=== PATIENT | female | born 1955 | race Two or more races ===

== ENCOUNTER → 2024-11-17 | Outpatient (CLI) | payer OTHER, SELFPAY ==
[2024-11-17 12:48] LABS: Glucose Estimated Average 117 mg/dL (80-131); Hemoglobin A1C 5.7 % Hgb (4.8-6.0)
[2024-11-17 12:57] LABS: Alanine Aminotransferase 31 U/L (10-49); Albumin, Serum 4.4 gm/dL (3.4-4.8); Albumin/Globulin Ratio 1.8 (1.2-2.2); Alkaline Phosphatase 73 U/L (46-116); Anion Gap 8 (7-16); Aspartate Amino Transferase 32 U/L (0-34); BUN/Creatinine Ratio 12 Ratio (12-20); Bilirubin,Total 1.0 mg/dL (0.3-1.2); Blood Urea Nitrogen 13 mg/dL (9-23); Calcium 9.6 mg/dL (8.3-10.6); Calcium (Corrected) 9.6 mg/dL (8.5-10.1); Carbon Dioxide 26.9 mMol/L (20.0-31.0); Cardiac Risk Estimate 4.6 RATIO (3.7-5.6); Chloride 104 mMol/L (98-107); Cholesterol 226 mg/dL (132-200); Creatinine (Component) 1.1 mg/dL (0.6-1.3); Free T4 (Free Thyroxine) 1.27 ng/dL (0.89-1.76); Globulin 2.4 gm/dL (2.3-3.5); Glucose 95 mg/dL (74-106); HDL Cholesterol 49 mg/dL (40-60); LDL Cholesterol,Calculated 138 mg/dL (0-130); Osmolality,Calculated 277 (275-295); Potassium 4.3 mMol/L (3.4-5.1); Sodium 139 mMol/L (136-145); Thyroid Stimulating Hormone 1.19 uIU/mL (0.55-4.78); Total Protein 6.8 gm/dL (5.7-8.2); Triglycerides 197 mg/dL (30-150); eGFR 54 See Note
[2024-11-17 13:02] LABS: Basophils # (Auto) 0.1 Thou/mm3 (0.0-0.2); Basophils % (Auto) 2 % (0-2.5); Eosinophils # (Auto) 0.2 Thou/mm3 (0.0-0.5); Eosinophils % (Auto) 4 % (0-10); Hematocrit 43.2 % (36.0-46.0); Hemoglobin 14.9 g/dL (12.0-16.0); Immature Granulocytes Auto 0.01 Thou/mm3 (0.00-0.00); Lymphocytes # (Auto) 2.3 Thou/mm3 (1.0-4.8); Lymphocytes % (Auto) 40 % (10-50); Mean Corpuscular HGB Conc 34.5 g/dl (31.0-37.0); Mean Corpuscular Hemoglobin 33.9 pg (25.0-35.0); Mean Corpuscular Volume 98 fL (80-100); Monocytes # (Auto) 0.4 Thou/mm3 (0.0-0.8); Monocytes % (Auto) 7 % (0-12); Neutrophils # (Auto) 2.7 Thou/mm3 (1.8-7.7); Neutrophils % (Auto) 47 % (37-80); Nucleated Red Blood Cell # 0.00 Thou/mm3 (0.00-0.00); Nucleated Red Blood Cell % 0 /100 WBC (0); Platelet Count 254 Thou/mm3 (140-440); RDW Standard Deviation 45.8 fL (36.4-46.3); Red Blood Count 4.40 Miln/mm3 (4.00-5.20); White Blood Count 5.8 Thou/mm3 (3.6-11.0)
[2024-11-17 13:11] LABS: Vitamin D 25 Hydroxy Total 30.1 ng/mL (7.3-40.2)
[2024-11-18 08:01] LABS: CA 15-3 10.2 U/mL (<32.4)
[2024-11-18 16:22] LABS: Vitamin B12 749 pg/mL (211-911)
== END | disposition home or self-care (01) ==
LOC: COPL 11:08
PROVIDERS: PCP Internal Medicine; Referring Provider Internal Medicine; Visit Provider Internal Medicine
DX: Z00.00 Encounter for general adult medical examination without abnormal findings (principal); E55.9 Vitamin D deficiency, unspecified
CPT/HCPCS: 36415; 80053; 80061; 82306; 82607; 83036; 84439; 84443; 85025; 86300

== ENCOUNTER → 2024-11-24 | Outpatient (CLI) | payer OTHER, SELFPAY ==
--- NOTE | 2024-11-24 | XR_ITS ---
Examination: Screening digital mammography, unilateral left Computer aided detection 3-D breast Tomosynthesis, unilateral Date and time of exam: November 24, 2024 0920 hours. Compared to mammograms dating to November 11, 2015 Indication: Screening Technique: Nonmagnified MLO, CC views of the left breast to been obtained, reconstructed from 3-D Tomosynthesis images. R2 computer aided detection program utilized for evaluation of suspicious masses and/or abnormal calcifications. 3-D Tomosynthesis images obtained. Findings: Scattered areas of fibroglandular density 7 mm nodule partially indistinct margins upper outer left breast posterior depth IMPRESSION: BI-RADS Category 0: Incomplete: Need additional imaging evaluation Recommend follow-up spot tomographic views of 7 mm nodule upper outer left breast as well as left breast sonography to complete the workup
== END | disposition home or self-care (01) ==
PROVIDERS: PCP Internal Medicine; Referring Provider Internal Medicine; Visit Provider Internal Medicine
DX: Z12.31 Encounter for screening mammogram for malignant neoplasm of breast (principal); N63.21 Unspecified lump in the left breast, upper outer quadrant
CPT/HCPCS: 77063; 77067

== ENCOUNTER → 2024-12-14 | Outpatient (CLI) | payer OTHER, MEDICARE, SELFPAY ==
--- NOTE | 2024-12-14 | XR_ITS ---
Examination: Breast ultrasound, unilateral, left complete Date and time of exam: December 14, 2024 1110 hours INDICATIONS: Personal history right breast cancer with mastectomy and bilateral breast 7 mm nodule indistinct margins upper outer left breast posterior depth reconstruction 1999, family history, sister breast cancer, left mammogram November 24, 2024 Technique: Real-time orosco scale ultrasonographic imaging performed left breast including all 4 quadrants as well as nipple retroareolar and axillary region. Findings: 2:00 nodule, suspicious, taller than wide, indistinct margins, 8 x 11 x 8 mm Benign cysts IMPRESSION: BI-RADS Category 4: Suspicious for malignancy Suspicious mass 2:00 position left breast, biopsy is needed to exclude breast carcinoma, this mass is amenable to ultrasound-guided breast biopsy for diagnosis
--- NOTE | 2024-12-14 | XR_ITS ---
Examination: Diagnostic digital mammography, unilateral, left Computer aided detection 3-D breast Tomosynthesis, unilateral Date and time of exam: December 14, 2024 1123 hours INDICATIONS: Mammogram November 24, 2024 7 mm nodule partially indistinct margins upper outer left breast Technique: Nonmagnified MLO, CC views of the left breast have been obtained, reconstructed from 3-D Tomosynthesis images. R2 computer aided detection program utilized for evaluation of suspicious masses and/or abnormal calcifications. 3-D Tomosynthesis images obtained. Findings: Scattered areas of fibroglandular density. 2:00 nodule is confirmed indistinct margins 11 mm upper outer left breast Impression: BI-RADS Category 4: Suspicious for malignancy Suspicious nodule 2:00 position left breast, also identified on left breast sonography today Biopsy is needed to exclude breast carcinoma, this nodule is amenable to ultrasound-guided breast biopsy for diagnosis
== END | disposition home or self-care (01) ==
PROVIDERS: PCP Internal Medicine; Referring Provider Internal Medicine; Visit Provider Internal Medicine
DX: R92.342 Mammographic extreme density, left breast (principal); N63.21 Unspecified lump in the left breast, upper outer quadrant
CPT/HCPCS: 76641; 77061; 77065; G0279

== ENCOUNTER → 2025-03-25 | Outpatient (CLI) | payer OTHER, MEDICARE, SELFPAY ==
[2025-03-24 11:05] LABS: Basophils # (Auto) 0.1 Thou/mm3 (0.0-0.2); Basophils % (Auto) 2 % (0-2.5); Eosinophils # (Auto) 0.2 Thou/mm3 (0.0-0.5); Eosinophils % (Auto) 3 % (0-10); Hematocrit 42.2 % (36.0-46.0); Hemoglobin 14.7 g/dL (12.0-16.0); Immature Granulocytes Auto 0.01 Thou/mm3 (0.00-0.00); Lymphocytes # (Auto) 2.5 Thou/mm3 (1.0-4.8); Lymphocytes % (Auto) 45 % (10-50); Mean Corpuscular HGB Conc 34.8 g/dl (31.0-37.0); Mean Corpuscular Hemoglobin 33.2 pg (25.0-35.0); Mean Corpuscular Volume 95 fL (80-100); Monocytes # (Auto) 0.4 Thou/mm3 (0.0-0.8); Monocytes % (Auto) 7 % (0-12); Neutrophils # (Auto) 2.4 Thou/mm3 (1.8-7.7); Neutrophils % (Auto) 43 % (37-80); Nucleated Red Blood Cell # 0.00 Thou/mm3 (0.00-0.00); Nucleated Red Blood Cell % 0 /100 WBC (0); Platelet Count 252 Thou/mm3 (140-440); RDW Standard Deviation 45.5 fL (36.4-46.3); Red Blood Count 4.43 Miln/mm3 (4.00-5.20); White Blood Count 5.5 Thou/mm3 (3.6-11.0)
[2025-03-24 11:20] LABS: INR 1.0 (0.9-1.3); Partial Thromboplastin Time 28.5 Seconds (22.0-36.0); Prothrombin Time 10.2 Seconds (9.0-12.2)
--- NOTE | 2025-03-25 09:30 | XR_ITS ---
Examinations: Ultrasound-guided percutaneous breast biopsy, left breast 2:00 nodule Left breast sonography limited INDICATIONS: BI-RADS 4 suspicious nodule 2 o'clock position left breast breast sonogram 12/14/2024. Exam date and time: March 25, 2025 0947 hours. Informed consent provided. Technique: A timeout was completed verifying correct patient, procedure, site, positioning, and special equipment if applicable Informed consent provided. The patient was placed in a supine position for the breast biopsy. Sonographic images of the breast were performed for localization of the suspicious nodule The patient's breast was prepped and draped in sterile fashion. Maximum sterile barrier technique, hand hygiene, ultrasound sterile technique 1% lidocaine was used to anesthetize the skin and breast adjacent to the suspicious nodule. Utilizing ultrasonographic guidance, 8 core biopsies were obtained of the suspicious nodule utilizing an 18-gauge BioPince needle. The specimens appears satisfactory. US guided breast biopsy marker placement. Estimated blood loss 3 cc. The patient tolerated the procedure well and there were no complications. Impression: Successful ultrasound-guided percutaneous breast biopsy, 2:00 left breast nodule. Ultrasound guided breast biopsy marker placement.
== END | disposition home or self-care (01) ==
LOC: SDIM 09:07 → SIRX 09:07
PROVIDERS: Radiology Diagnostic Radiology; PCP Internal Medicine; Referring Provider Internal Medicine; Visit Provider Internal Medicine
DX: C50.412 Malignant neoplasm of upper-outer quadrant of left female breast (principal)
CPT/HCPCS: 19083; 36415; 85025; 85610; 85730; A4648

== ENCOUNTER 2025-04-07 08:38 | Outpatient (RCR) | payer OTHER, MEDICARE, SELFPAY ==
--- NOTE | 2025-04-07 10:03 | CTCCONSULT_ITS ---
[facility] [address], [place] [address] Consultation Note Date: 04/07/2025 MR#: [id number] Name: VALERIA BUSH : 1955 Dx: Z85.3 Personal history of malignant neoplasm of breast Attending physician. Jose Pena MD Reason for consultation. Patient with history of right breast CA and diagnosis of new left breast CA. History of Present Illness: Patient is a well-known 69-year-old lady and previous worker at [employer], underwent right mastectomy 6 cycles of CAF chemo and radiotherapy to the chest wall and regional nodes for locally advanced right breast CA in 1999. After 5 years of adjuvant antihormonal therapy this was stopped in 2005; underwent breast reconstruction 2011. . Last seen for follow-up 2021 with no sign of recurrence and underwent endometrial biopsy which was negative for malignancy. Patient recently felt a lump in the opposite left breast with ultrasound showing a 2:00 11 mm nodule which biopsied 03/25/2025 revealed invasive ductal carcinoma largest focus 0.7 cm. ER/ND positive HER2/mirella pending Ki-67 low at 3%. Patient now referred to the [facility] treatment [place]. Past Medical History: Right breast CA 1999, treated as above. 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 denies smoking drinking Meds. None Allergies none Family history. 1 sister with breast cancer Review of Systems: Noncontributory Physical Exam: General: Adequate nourished appearing lady no acute distress HEENT: Atraumatic normocephalic extraocular is intact no oral lesions no cervical or supraclavicular adenopathy Chest. Right breast reconstructed appears cosmetically satisfactory no suspicious masses seen or felt. Left breast has small abrasion related to tape no suspicious masses seen felt in either axillary region. ABD: Soft organomegaly or tenderness EXT: No cyanosis clubbing or edema Assessment:A#1, History of locally advanced right breast CA receptor positive HER2 negative status post mastectomy postop chemoradiation 2000 status post 5 years adjuvant estrogen modulator completed 2005. Breast reconstruction performed 2011. No sign of local regional recurrence A#2. Recent diagnosis of left breast CA clinical stage I 11 mm nodule invasive ductal carcinoma receptor positive Ki-67 low 3% HER2/mirella pending. A#3. Referral to Dr. Mayers, medical oncologist. A#4. Referral to Dr. Field who did the original right breast surgery A#5. I will see her in 3 months. 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 Cc: Jose Winkler MD Electronically signed by: Mookie Dunne MD, DABR 04/07/2025 10:01 AM
== END 2025-04-07 23:59 | disposition home or self-care (01) ==
LOC: SCTC 08:38
PROVIDERS: PCP Internal Medicine; Referring Provider Internal Medicine; Visit Provider Radiology Therapeutic Radiology
DX: C50.412 Malignant neoplasm of upper-outer quadrant of left female breast (principal); Z17.0 Estrogen receptor positive status [ER+]; Z17.21 Progesterone receptor positive status
CPT/HCPCS: 99213; G0463